=== PATIENT | female | born 1965 | race Hispanic/Latino ===

== ENCOUNTER 2024-06-30 03:03 | Inpatient (IN) | payer BC ==
[~2024-06-30] VITALS: Ht 154.9 cm; Wt 65.3 kg
[2024-06-30] VITALS (7 sets, daily range): BP systolic 142–150; BP diastolic 75–83; PULSE 82–92; RESP 18; TEMP 98.1–98.9; O2SAT 99
[~2024-06-30 03:03] MED LIST: POTA-192 PO
[2024-06-30] MEDS: ondanSETRON 4MG INJ IVP ONE (03:33)
[2024-06-30] MEDS: LACTATED RINGERS 1000ML 1,000 ML IV ONE (03:33)
[2024-06-30 03:44] LABS: BASOPHILS # (AUTO) 0.08 K/uL (0.00-0.20); BASOPHILS % (AUTO) 0.7 % (0.0-5.0); EOSINOPHILS # (AUTO) 0.13 K/uL (0.00-0.70); EOSINOPHILS % (AUTO) 1.1 % (0.0-8.0); IMMATURE GRANULOCYTE ABSOLUTE 0.04 K/uL (0-1); LYMPHOCYTES # (AUTO) 1.6 K/uL (1.0-4.8); LYMPHOCYTES % (AUTO) 14.1 % (21.0-51.0); MEAN CORPUSCULAR HEMOGLOBIN 22.6 pg (27.0-33.0); MEAN CORPUSCULAR HGB CONC 28.8 g/dL (32.0-36.0); MEAN CORPUSCULAR VOLUME 78.3 fL (79-99); MONOCYTES # (AUTO) 0.7 K/uL (0.1-1.0); MONOCYTES % (AUTO) 6.4 % (3.0-13.0); NEUTROPHILS # (AUTO) 8.9 K/uL (1.8-7.7); NEUTROPHILS % (AUTO) 77.4 % (40.0-77.0); PLATELET COUNT (AUTO) 600 K/uL (130-400); RED BLOOD CELL COUNT(AUTO) 3.32 MIL/uL (4.00-5.50); RED CELL DISTRIBUTION WIDTH 20.4 % (11.0-15.5); WHITE BLOOD COUNT (AUTO) 11.5 K/uL (4.8-10.8)
[2024-06-30 03:49] LABS: ADD UA MICROSCOPIC YES; APPEARANCE,URINE TURBID (CLEAR); BILIRUBIN,URINE NEGATIVE (NEGATIVE); COLOR,URINE RED (YELLOW); GLUCOSE, URINE (UA) NEGATIVE (NEGATIVE); KETONES,URINE NEGATIVE (NEGATIVE); LEUKOCYTE ESTERASE ,URINE 500 Leu/uL (NEGATIVE); NITRATE,URINE NEGATIVE (NEGATIVE); OCCULT BLOOD,URINE LARGE (NEGATIVE); PROTEIN,URINE 300 mg/dL (NEGATIVE); UROBILINOGEN,URINE 0.2 mg/dL (0.2-1.0)
[2024-06-30 03:51] LABS: CREATININE 0.7 mg/dL (0.5-1.0); POTASSIUM 4.2 mmol/L (3.5-5.1)
[2024-06-30 03:52] LABS: BACTERIA,URINE MANY /HPF (None Seen); MUCUS,URINE RARE LPF (None Seen); NON-SQUAMOUS EPITHELIAL CELL 3 /HPF (0-2); RBC,URINE TNTC /HPF (0-1); WBC CLUMP MANY /HPF (0-1); WBC,URINE TNTC /HPF (0-1)
[2024-06-30] MEDS ORDERED: acetaMINOPHEN 325 MG TAB PO SCH (06:00)
[2024-06-30] MEDS ORDERED: DiphenhydrAMINE HCL 25 MG CAPSULE PO SCH (06:00)
[2024-06-30] MEDS ORDERED: acetaMINOPHEN 500 MG TABLET PO PRN (06:00)
[2024-06-30] MEDS: 0.9%NACL 1000ML 1,000 ML IV SCH (06:15)
[2024-06-30] MEDS: TRANEXAMIC ACID 1000MG/10ML IV SCH (06:15)
[2024-06-30] MEDS ORDERED: LISI10TA24 PO (07:41)
[2024-06-30] MEDS ORDERED: TIZA4CAP8 PO (07:41)
[2024-06-30] MEDS ORDERED: POTA20PA32 PO (07:41)
[2024-06-30] MEDS ORDERED: IBUP-2070 PO (07:41)
[2024-06-30] MEDS ORDERED: MEDR10TA11 PO (07:41)
[2024-06-30 12:31] LABS: HEMATOCRIT 31.1 % (36-48)
[2024-06-30] MEDS: IRON sUCROse COMPLEX 300 MG in 0.9% NACL 250ML 250 ML IV ONE (18:06)
== END 2024-06-30 18:30 | disposition home or self-care (01) | DRG 761 ==
LOC: EDH 03:03 → EDHIP 05:17 → WSH 05:18
PROVIDERS: ADMIT Obstetrics & Gynecology; ATTEND Obstetrics & Gynecology
PROC: 30233N1 Transfusion of Nonautologous Red Blood Cells into Peripheral Vein, Percutaneous Approach (ICD-10-PCS; principal; 2024-06-30)
DX: N93.8 Other specified abnormal uterine and vaginal bleeding (principal); D50.0 Iron deficiency anemia secondary to blood loss (chronic); I10 Essential (primary) hypertension
CPT/HCPCS: 36415; 36430; 76857; 80048; 81001; 85014; 85018; 85025; 86850; 86900; 86901; 86923; 87086; 96375; G0378; J1756; J2405; J3490; J7050; J7120; P9016

== ENCOUNTER 2024-07-02 05:56 | Emergency (ER) | payer BC ==
[~2024-07-02] VITALS: Ht 162.6 cm; Wt 65.3 kg
[~2024-07-02 05:56] MED LIST changes: +IBUP-2070 PO; +LISI10TA24 PO; +MEDR10TA11 PO; -POTA-192 PO; +POTA20PA32 PO; +TIZA4CAP8 PO
[2024-07-02] MEDS: LACTATED RINGERS 1000ML 1,000 ML IV ONE (06:50)
--- NOTE | 2024-07-02 06:51 | ERN ---
General Chief Complaint: Dizzy/Light Headed Stated Complaint: DIZZY, FAINTED Time Seen by MD: 06:09 History of Present Illness Initial Comments Mr. Alvarado is a very pleasant 58-year-old female with significant past medical history of essential hypertension and dysfunction uterine bleeding comes in with a chief complaint of dizziness. Patient was recently discharged yesterday with similar presentation and diagnosis. Patient was seen by rn ostomy but was told to follow up as an outpatient this Saturday.. Patient returns after saying that she had passed a massive blood clot. She did have an ultrasound previously which did show fibroids. She reports today that she almost fainted. Allergies: Coded Allergies: No Known Drug Allergies (Unverified Allergy, Unknown, 06/27/24) Home Meds Reported Medications Ibuprofen (Ibuprofen) 600 Mg Tablet, 1 TAB PO TID for pain for 10 Days, #30 TAB 0 Refills with food 06/30/24 Potassium Chloride (Potassium Chloride) 20 Meq Packet, 20 MEQ PO BID, PKT 06/30/24 Medroxyprogesterone Acetate (Medroxyprogesterone Acetate) 10 Mg Tablet, 10 MG PO BID, TAB 06/30/24 Tizanidine HCl (Tizanidine HCl) 4 Mg Capsule, 4 MG PO TID PRN for PAIN LEVEL 1 TO 5, CAP 06/30/24 Lisinopril (Lisinopril) 10 Mg Tablet, 10 MG PO DAILY, TAB 06/30/24 Discontinued Scripts Potassium Chloride (K-Dur/Klor-Con) 20 Meq Ertab, 20 MEQ PO BID for 5 Days, #10 TAB.EC Prov:LIZZIE PASCAL RN PROVIDER RELATIONS 06/27/24 Past Medical History Past Medical History: Anemia, UTI, Other Medical History Other: THYROID DISEASE Past Surgical History: Female( History) History: Not Applicable ROS Dictation Constitutional: Negative for fever,chills, and weight loss Eyes: Negative for injury, pain,redness, and discharge ENT: Negative for injury,pain or swelling Cardiovascular: Negative for chest pain, palpitations, and edema Respiratory: Negative for shortness of breath, cough, and wheezing, Abdomen/GI: Positive for abdominal pain and vaginal bleeding Back: Negative for injury and pain : Negative for injury, bleeding and discharge MS/Extremity: Negative for injury and deformity Skin: Negative for rash, and discoloration Neuro: Positive for weakness and dizziness Psych: Negative for suicide ideation, homicidal ideation, and hallucinations Physical Exam Physical Exam Dictation General: awake, alert, NAD Head/Face: Normocephalic, atraumatic Eyes: PERRL, EOMI, vision at baseline ENT: oral cavity clear Neck: Trachea midline, supple, Cardiovascular: RRR, normal S1/S2, No MRGs, no JVD Respiratory: CTAB, no respiratory distress, No rales or wheezes Abdomen: Soft, non-tender, non-distended, normal bowel sounds, no guarding or rebound. Skin: Warm, dry, normal turgor, no rash MS/Extremity: Pulses equal Neuro: COAx4, GCS 15 Results Laboratory and Microbiology Lab and Micro Result Laboratory Tests Test 07/02/24 06:44 White Blood Count 15.7 K/uL (4.8-10.8) H Red Blood Count 4.34 MIL/uL (4.00-5.50) Hemoglobin 10.2 g/dL (12.0-16.0) L Hematocrit 35.4 % (36-48) L Mean Corpuscular Volume 81.6 fL (79-99) Mean Corpuscular Hemoglobin 23.5 pg (27.0-33.0) L Mean Corpuscular Hemoglobin Concent 28.8 g/dL (32.0-36.0) L Red Cell Distribution Width 20.2 % (11.0-15.5) H Platelet Count 500 K/uL (130-400) H Mean Platelet Volume 9.3 fL (7.5-10.5) Immature Granulocyte % (Auto) 0.4 % (0-1) Neutrophils (%) (Auto) 84.8 % (40.0-77.0) H Lymphocytes (%) (Auto) 8.3 % (21.0-51.0) L Monocytes (%) (Auto) 4.6 % (3.0-13.0) Eosinophils (%) (Auto) 1.2 % (0.0-8.0) Basophils (%) (Auto) 0.7 % (0.0-5.0) Neutrophils # (Auto) 13.3 K/uL (1.8-7.7) H Lymphocytes # (Auto) 1.3 K/uL (1.0-4.8) Monocytes # (Auto) 0.7 K/uL (0.1-1.0) Eosinophils # (Auto) 0.19 K/uL (0.00-0.70) Basophils # (Auto) 0.11 K/uL (0.00-0.20) Absolute Immature Granulocyte (auto 0.07 K/uL (0-1) Nucleated Red Blood Cells 0.0 % (0.0-0.19) White Cell Morphology Comment See comments Sodium Level 137 mmol/L (136-145) Potassium Level 4.6 mmol/L (3.5-5.1) Chloride Level 103 mmol/L (101-111) Carbon Dioxide Level 30 mmol/L (21-32) Blood Urea Nitrogen 16 mg/dL (7-18) Creatinine 0.8 mg/dL (0.5-1.0) Glomerular Filtration Rate Calc 86 mL/min (>90) Random Glucose 107 mg/dL (70-105) H Total Calcium 9.1 mg/dL (8.5-10.1) Troponin I High Sensitivity 31 ng/L (4-50) B-Type Natriuretic Peptide 11 pg/mL (0-100) MDM MDM: Differential diagnosis:anemia 1040- Dr. Rogers, consult Previous outside records reviewed: Old ER visits. Need for hospitalization: Patient does not meet criteria for hospitalization. Need for emergency major/minor surgery: No Patient's prior external medical records from other ER visits were reviewed by me as indicated. Prior testing and results from previous visits were reviewed. Prior tests were taken into account with medical decision making and resource utilization, independent historian/historians were used to obtain complete medical history. I independently interpreted the test that were performed, results were reviewed by me and considered findings on radiology if ordered. Medical management and examination interpretation discussions were had by me with other qualified healthcare professionals as indicated for the patient's care. Repeat H and H is 10, hemodynamically stable, patient has appointment tomorrow morning with Ob spoke to OB on-call who agrees with treatment plan. ED Course Orders Procedure Category Date Status Time Cbc With Differential LAB 07/02/24 Complete 06:18 Lactated Ringers PHA 07/02/24 Complete 1000ml (Lactated 06:30 Basic Metabolic Panel LAB 07/02/24 Complete 06:18 12 Lead Ekg Tracing- EKG 07/02/24 Complete Technical 07:34 B-Type Natriuretic LAB 07/02/24 Complete Peptide 07:34 Troponin I High LAB 07/02/24 Complete Sensitivity 07:34 Ibuprofen 600 Mg PHA 07/02/24 Complete Tablet (Motrin) 10:30 Current Medications Medications (Trade) Dose Ordered Sig/Hallie Route PRN Reason Start Time Stop Time Status Last Admin Dose Admin Ibuprofen (moTRIN) 600 mg ONCE ONCE PO 07/02/24 10:30 07/02/24 10:31 DC 07/02/24 10:24 Lactated Ringer's 1,000 ml @ 0 mls/hr Q0M ONCE IV 07/02/24 06:30 07/02/24 06:31 DC 07/02/24 06:50 Vital Signs Date Time Temp Pulse Resp B/P (MAP) Pulse Ox O2 Delivery O2 Flow Rate FiO2 07/02/24 10:24 98.4 07/02/24 10:04 98.4 84 18 137/57 100 Room Air* 0 21 07/02/24 07:38 98.4 88 18 120/55 99 Room Air* 0 21 07/02/24 06:27 98.4 77 18 146/68 98 Room Air* 0 21 07/02/24 06:05 98.4 71 16 157/69 100 Room Air 0 DX & DISP Disposition: Discharge Departure Impression: Primary Impression: Dysfunctional uterine bleeding Additional Impression: Chronic anemia Condition: Stable Referrals: GRETA WALLER MD (PCP) I have reviewed, & agreed with my scribe's, documentation. (Entered by Lisseth Patiño, acting as a scribe for Dr. Mojica) I personally scribed for TYRONE ROJAS MD ([facility]) on 07/02/24 at 10:51. Yanci ctronically submitted by Lisseth Patiño ([email or web address]). TYRONE ROJAS MD Jul 02, 2024 06:51 TRA MOJICA MD Jul 02, 2024 11:04
[2024-07-02 06:53] LABS: BASOPHILS # (AUTO) 0.11 K/uL (0.00-0.20); BASOPHILS % (AUTO) 0.7 % (0.0-5.0); EOSINOPHILS # (AUTO) 0.19 K/uL (0.00-0.70); EOSINOPHILS % (AUTO) 1.2 % (0.0-8.0); HEMATOCRIT 35.4 % (36-48); IMMATURE GRANULOCYTE ABSOLUTE 0.07 K/uL (0-1); LYMPHOCYTES # (AUTO) 1.3 K/uL (1.0-4.8); LYMPHOCYTES % (AUTO) 8.3 % (21.0-51.0); MEAN CORPUSCULAR HEMOGLOBIN 23.5 pg (27.0-33.0); MEAN CORPUSCULAR HGB CONC 28.8 g/dL (32.0-36.0); MEAN CORPUSCULAR VOLUME 81.6 fL (79-99); MONOCYTES # (AUTO) 0.7 K/uL (0.1-1.0); MONOCYTES % (AUTO) 4.6 % (3.0-13.0); NEUTROPHILS # (AUTO) 13.3 K/uL (1.8-7.7); NEUTROPHILS % (AUTO) 84.8 % (40.0-77.0); PLATELET COUNT (AUTO) 500 K/uL (130-400); RED BLOOD CELL COUNT(AUTO) 4.34 MIL/uL (4.00-5.50); RED CELL DISTRIBUTION WIDTH 20.2 % (11.0-15.5); WHITE BLOOD COUNT (AUTO) 15.7 K/uL (4.8-10.8)
[2024-07-02 07:04] LABS: CREATININE 0.8 mg/dL (0.5-1.0); POTASSIUM 4.6 mmol/L (3.5-5.1)
--- NOTE | 2024-07-02 07:54 | EKG ---
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
[2024-07-02] MEDS: ibuPROFEN 600 MG TABLET PO ONE (10:24)
[2024-07-02 11:27] VITALS: TEMP 98.4
[2024-07-02] MEDS: morPHINE 4 MG SYG IVP ONE (11:27)
--- NOTE | 2024-07-02 11:56 | HMCIMG ---
CT ABD/PEL WO CON RENAL/APPY HISTORY: Lower abdominal pain COMPARISON: None TECHNIQUE: Multiple sequential axial images of the abdomen and pelvis were obtained from the dome of the diaphragm through symphysis pubis. Patient was not given contrast through intravenous route. Oral contrast was not given. FINDINGS: No pleural effusion is seen bilaterally. There are left basilar linear atelectasis. There is no evidence of parenchymal disease or pulmonary nodule of the visualized lower lungs. Degenerative changes of the thoracolumbar spine are present. The heart is not enlarged. Liver measures 18 cm. The liver, spleen, adrenal glands and pancreas are unremarkable. There is no evidence of hydronephrosis bilaterally. No evidence of renal stone is seen. Fecal material is seen in the colon. There are normal size retroperitoneal and mesenteric lymph nodes. No ascites is seen. No definite CT evidence of acute appendicitis is seen. Clinical correlation is recommended. Uterus is markedly enlarged measuring 10.1 x 9.2 cm with internal air collection and clinical correlation is recommended. This may be related to fibroid uterus with uterine mass not excluded. Pelvic sidewalls are symmetric bilaterally. Bladder is poorly distended with apparent wall thickening. IMPRESSION: 1. No definite CT evidence of acute appendicitis is seen. Clinical correlation is recommended. Uterus is markedly enlarged measuring 10.1 x 9.2 cm with internal air collection and clinical correlation is recommended. This may be related to fibroid uterus with uterine mass not excluded. CT was performed with one or more following dose reduction techniques: automated exposure control, adjustment of the mA and kv according to patient's size, or use of a iterative reconstruction technique.
[2024-07-02 12:13] VITALS: BP 151/73; PULSE 73; RESP 18; TEMP 98.4; O2SAT 97
== END 2024-07-02 12:45 | disposition home or self-care (01) ==
LOC: EDH 05:56
DX: N93.8 Other specified abnormal uterine and vaginal bleeding (principal); R42 Dizziness and giddiness; D53.9 Nutritional anemia, unspecified; I10 Essential (primary) hypertension; Z79.899 Other long term (current) drug therapy; Z98.890 Other specified postprocedural states; R10.9 Unspecified abdominal pain
CPT/HCPCS: 99284; 74176; 96374; 84484; 80048; 83880; 85025; 36415; 93005; J7120; J2270